=== PATIENT | female | born 1975 | race Caucasian/White ===

== ENCOUNTER 2017-05-29 09:01 | Emergency (ER) | payer BC ==
[2017-05-29 09:11] VITALS: BP 118/77
--- NOTE | 2017-05-29 09:13 | UC ---
Throat Pain/Nasal Robson HPI - HPI Summary HPI Summary: 41 YEAR OLD FEMALE PRESENTS WITH URINARY FREQUENCY, URGENCY AND PAIN. - History of Current Complaint Chief Complaint: UCGU Stated Complaint: URINARY ISSUE Time Seen by Provider: 05/29/17 09:12 Hx Obtained From: Patient Hx Last Menstrual Period: 05/16/17 Onset/Duration: Sudden Onset Severity: Moderate Pain Scale Used: 0-10 Numeric - 6 Cough: Nonproductive Associated Signs & Symptoms: Positive: Negative - Allergies/Home Medications Allergies/Adverse Reactions: Allergies Allergy/AdvReac Type Severity Reaction Status Date / Time Hydrocortisone Allergy Rash Verified 05/29/17 09:06 PMH/Surg Hx/FS Hx/Imm Hx Previously Healthy: Yes - Surgical History Surgical History: Yes Surgery Procedure, Year, and Place: c/sec rhino plasty breast augmentation - Social History Alcohol Use: Daily Alcohol Amount: wine and beer Substance Use Type: None Smoking Status (MU): Never Smoked Tobacco Review of Systems Constitutional: Negative Skin: Negative Eyes: Negative ENT: Negative Respiratory: Negative Cardiovascular: Negative Gastrointestinal: Negative Genitourinary: Dysuria, Frequency, Urgency Motor: Negative Neurovascular: Negative Musculoskeletal: Negative Neurological: Negative Psychological: Negative Is Patient Immunocompromised?: Yes All Other Systems Reviewed And Are Negative: Yes Physical Exam Triage Information Reviewed: Yes Vital Signs: Initial Vital Signs Temp 36.6 C 05/29/17 09:07 Pulse 78 05/29/17 09:07 Resp 15 05/29/17 09:07 BP 118/77 05/29/17 09:07 Pulse Ox 99 05/29/17 09:07 Eye Exam: Normal ENT Exam: Normal Dental Exam: Normal Neck exam: Normal Neck: Positive: 1 Respiratory Exam: Normal Cardiovascular Exam: Normal Abdominal Exam: Normal Musculoskeletal Exam: Normal Neurological Exam: Normal Psychological Exam: Normal Skin Exam: Normal Throat Pain/Nasal Course/Dx - Differential Dx/Diagnosis Provider Diagnoses: UTI. URINARY PAIN. URINARY FREQUENCY Discharge - Discharge Plan Condition: Stable Disposition: HOME Prescriptions: Nitrofurantoin Monohyd Macro [Macrobid] 100 mg PO BID #[id number] cap Patient Education Materials: Urinary Tract Infection in Women (ED), Dysuria (ED ) Referrals: No Primary Care Phys,NOPCP [Primary Care Provider] -
== END 2017-05-29 10:18 | disposition home or self-care (01) ==
LOC: UCEAST 09:01
DX: N39.0 Urinary tract infection, site not specified (principal); R35.0 Frequency of micturition
CPT/HCPCS: 81003; 87077; 87086; 87186; 99202; G0463